=== PATIENT | male | born 1985 | race Caucasian/White ===

== ENCOUNTER 2017-07-28 18:59 | Emergency (ER) | payer OTHER ==
[2017-07-28 19:02] VITALS: BP 130/84; PULSE 86; RESP 16; TEMP 97.8; O2SAT 97
[2017-07-28] MEDS ORDERED: ADDE20XR PO (19:19)
--- NOTE | 2017-07-28 19:39 | RADRPT ---
EXAM DATE/TIME: 07/28/2017 19:24 [place] COMPARISON: No previous studies available for comparison. INDICATIONS : Left ankle pain. Patient [place] a [place]. MEDICAL HISTORY : Prior fracture. SURGICAL HISTORY : None. ENCOUNTER: Initial ACUITY: 2 weeks PAIN SCORE: 10/10 LOCATION: Left ankle. FINDINGS: Three view exam was performed of the left ankle. The bony structures are in normal alignment. No ev idence of fracture, dislocation, or soft tissue swelling. The ankle mortise is intact. No radiopaqu e foreign bodies are seen. Bony mineralization is normal. CONCLUSION: 1. No acute findings. Puneet Tobias MD on July 28, 2017 at 19:36 Board Certified Radiologist. This report was verified electronically.
--- NOTE | 2017-07-28 19:41 | PD ---
HPI Chief Complaint: Musculoskeletal Complaint Time Seen by Provider: 19:17 Travel History International Travel<30 days: No Contact w/Intl Traveler<30days: No Traveled to known affect area: No History of Present Illness HPI 31-year-old male presents emergency department complaining of left ankle pain. He states that he fell roller skating about a week and a half or so ago, but then injured it again today. Is been using a cane because of pain with weightbearing. Pains mostly in the lateral side of the ankle, worse with weightbearing, ongoing for the past week or so. History Past Medical History Medical History: Denies Significant Hx Tetanus Vaccination: < 5 Years Influenza Vaccination: Yes Past Surgical History Surgical History: No Previous Surgery Social History Alcohol Use: No Tobacco Use: Yes (cigar once in awhile) Allergies-Medications (Allergen,Severity, Reaction): Coded Allergies: No Known Allergies (Verified , 07/28/17) Reported Meds & Prescriptions Reported Meds & Active Scripts Active Reported Adderall Xr 24 HR (Amphetamine/Dextroamphetamine) 20 Mg Cap 20 Mg PO DAILY Once daily in the morning. Review of Systems Except as stated in HPI: all other systems reviewed are Neg Physical Exam Narrative GENERAL: Well-appearing 31-year-old man, no acute distress. SKIN: Warm and dry. CARDIOVASCULAR: Warm and well perfused. RESPIRATORY: Normal rate and effort. MUSCULOSKELETAL: Focus examination the left lower extremity reveals pain just inferior to the lateral malleolus. There is no pain on the dorsum of the foot. There is no pain to palpation of the medial lateral malleoli. There is no pain with calf squeeze or compression of the tibia and fibula proximally. Full range of motion. There is no ankle instability appreciable on my exam. NEUROLOGICAL: Awake and alert. No gross deficits. Data Data Last Documented VS Vital Signs Date Time Temp Pulse Resp B/P (MAP) Pulse Ox O2 Delivery O2 Flow Rate FiO2 07/28/17 19:19 20 07/28/17 19:02 97.8 86 130/84 (99) 97 Room Air Orders Orders Ankle, Complete ([id number]) (07/28/17 ) Splint Or Brace Apply/Monitor (07/28/17 19:36) MDM Medical Decision Making Medical Screen Exam Complete: Yes Emergency Medical Condition: Yes Interpretation(s) My review of left ankle x-ray: Negative. Differential Diagnosis Ankle injury, strain, fracture, other Narrative Course Medical decision making 31-year-old male with ankle injury times about a week and a half. Looks well. My review of the x-rays negative. Recommend splint, weightbearing as tolerated , proprioception exercises as discussed. Diagnosis Primary Impression: Left ankle sprain Additional Instructions: Wear splint as needed for comfort. Weight-bear as tolerated. The range of motion exercises as discussed. Follow-up with your primary doctor for not completely well in one to 2 weeks. Med/Other Pt SpecificInfo: No Change to Meds Disposition: 01 DISCHARGE HOME Condition: Stable Kp Gutierrez MD Jul 28, 2017 19:41
== END 2017-07-28 20:07 | disposition home or self-care (01) ==
LOC: NEPD 18:59
DX: S93.402A Sprain of unspecified ligament of left ankle, initial encounter (principal); Z72.0 Tobacco use; W18.39XA Other fall on same level, initial encounter; Y93.51 Activity, roller skating (inline) and skateboarding
CPT/HCPCS: 73610; 99283; E0113; L1906

== ENCOUNTER 2017-11-14 12:38 | Emergency (ER) | payer OTHER ==
[~2017-11-14] VITALS: Ht 172.7 cm; Wt 76.0 kg
[~2017-11-14 12:38] MED LIST: ADDE20XR PO
[2017-11-14 12:48] VITALS: BP 148/104; PULSE 122; RESP 16; TEMP 98.2; O2SAT 98
[2017-11-14] MEDS ORDERED: ZOLO25TA PO (12:52)
--- NOTE | 2017-11-14 13:42 | PD ---
HPI Chief Complaint: Psychiatric Symptoms Time Seen by Provider: 12:50 Travel History International Travel<30 days: No Contact w/Intl Traveler<30days: No Traveled to known affect area: No History of Present Illness HPI The patient is a 31-year-old male who presents to the emergency department for psychiatric evaluation. The patient was evaluated by his therapist earlier today and placed under a Avalos act for major depressive disorder, PTSD, and ADHD. 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 The patient is a who is extremely depressed and had a panic attack yesterday. The patient does state he has daily thoughts of suicide but does not currently have a plan. He does state he rabies sleep cut his right wrist while he was intoxicated and an attempt at suicide. He denies any history of overdose. He smokes marijuana occasionally, has been off of his Klonopin, Adderall, and Zoloft for several weeks. Symptoms are moderate. There are no current alleviating factors. The patient denies any physical complaints. PFSH Past Medical History ADHD: Yes Asthma: No Depression: Yes Cancer: No Cardiovascular Problems: No Diabetes: No Diminished Hearing: No Neurologic: Yes (tbi) Psychiatric: Yes (ptsd) Immunizations Current: Yes Seizures: No Thyroid Disease: No Ulcer: No Past Surgical History Surgical History: No Previous Surgery Other Surgery: No Social History Alcohol Use: No Tobacco Use: No (former) Substance Use: Yes Allergies-Medications (Allergen,Severity, Reaction): Coded Allergies: No Known Allergies (Verified , 07/28/17) Reported Meds & Prescriptions Reported Meds & Active Scripts Active Reported Zoloft (Sertraline HCl) 25 Mg Tab 25 Mg PO DAILY Adderall Xr 24 HR (Amphetamine/Dextroamphetamine) 20 Mg Cap 20 Mg PO DAILY Once daily in the morning. Review of Systems Except as stated in HPI: all other systems reviewed are Neg General / Constitutional: No: Fever Cardiovascular: No: Chest Pain or Discomfort Respiratory: No: Shortness of Breath Gastrointestinal: No: Nausea, Vomiting, Abdominal Pain Neurologic: No: Headache Psychiatric: Positive: Anxiety, Depression, Suicidal Ideations, No: Homicidal Ideation Physical Exam Narrative GENERAL: Awake, alert, pleasant 31-year-old male who appears his stated age and is in no acute respiratory distress. SKIN: Focused skin assessment warm/dry. Tattoos noted. Old scar of the volar aspect of the right wrist noted. HEAD: Atraumatic. Normocephalic. EYES: Pupils equal and round. No scleral icterus. No injection or drainage. ENT: No nasal bleeding or discharge. Mucous membranes pink and moist. NECK: Trachea midline. No JVD. CARDIOVASCULAR: Regular rate and rhythm. No murmur appreciated. RESPIRATORY: No accessory muscle use. Clear to auscultation. Breath sounds equal bilaterally. GASTROINTESTINAL: Abdomen soft, non-tender, nondistended. No rebound tenderness. MUSCULOSKELETAL: No obvious deformities. No clubbing. No cyanosis. No edema. NEUROLOGICAL: Awake and alert. No obvious cranial nerve deficits. Motor grossly within normal limits. Normal speech. Nonfocal. Oriented 4. Follows commands without difficulty. PSYCHIATRIC: Appropriate mood and affect; insight and judgment normal. Data Data Last Documented VS Vital Signs Date Time Temp Pulse Resp B/P (MAP) Pulse Ox O2 Delivery O2 Flow Rate FiO2 11/14/17 12:48 98.2 122 16 148/104 (119) 98 Orders Orders Complete Blood Count With Diff (11/14/17 13:36) Comprehensive Metabolic Panel (11/14/17 13:36) Thyroid Stimulating Hormone (11/14/17 13:36) Psych Screen (11/14/17 13:36) Drug Screen, Random Urine (11/14/17 13:36) Alcohol (Ethanol) (11/14/17 13:36) Labs Laboratory Tests Test 11/14/17 13:46 White Blood Count 9.6 TH/MM3 Red Blood Count 5.64 MIL/MM3 Hemoglobin 17.5 GM/DL Hematocrit 49.4 % Mean Corpuscular Volume 87.7 FL Mean Corpuscular Hemoglobin 31.0 PG Mean Corpuscular Hemoglobin Concent 35.3 % Red Cell Distribution Width 13.3 % Platelet Count 349 TH/MM3 Mean Platelet Volume 8.1 FL Neutrophils (%) (Auto) 73.4 % Lymphocytes (%) (Auto) 18.1 % Monocytes (%) (Auto) 6.7 % Eosinophils (%) (Auto) 1.4 % Basophils (%) (Auto) 0.4 % Neutrophils # (Auto) 7.1 TH/MM3 Lymphocytes # (Auto) 1.7 TH/MM3 Monocytes # (Auto) 0.6 TH/MM3 Eosinophils # (Auto) 0.1 TH/MM3 Basophils # (Auto) 0.0 TH/MM3 CBC Comment DIFF FINAL Differential Comment Blood Urea Nitrogen 16 MG/DL Creatinine 1.12 MG/DL Random Glucose 92 MG/DL Total Protein 9.2 GM/DL Albumin 5.2 GM/DL Calcium Level 10.0 MG/DL Alkaline Phosphatase 74 U/L Aspartate Amino Transf (AST/SGOT) 15 U/L Alanine Aminotransferase (ALT/SGPT) 44 U/L Total Bilirubin 0.9 MG/DL Sodium Level 138 MEQ/L Potassium Level 4.1 MEQ/L Chloride Level 103 MEQ/L Carbon Dioxide Level 28.2 MEQ/L Anion Gap 7 MEQ/L Estimat Glomerular Filtration Rate 77 ML/MIN Thyroid Stimulating Hormone 3rd Gen 1.710 uIU/ML Urine Opiates Screen NEG Urine Barbiturates Screen NEG Urine Amphetamines Screen NEG Urine Benzodiazepines Screen NEG Urine Cocaine Screen NEG Urine Cannabinoids Screen POS Ethyl Alcohol Level LESS THAN 3 MG/DL MDM Medical Decision Making Medical Screen Exam Complete: Yes Emergency Medical Condition: Yes Medical Record Reviewed: Yes Interpretation(s) Laboratory Tests Test 11/14/17 13:46 White Blood Count 9.6 TH/MM3 Red Blood Count 5.64 MIL/MM3 Hemoglobin 17.5 GM/DL Hematocrit 49.4 % Mean Corpuscular Volume 87.7 FL Mean Corpuscular Hemoglobin 31.0 PG Mean Corpuscular Hemoglobin Concent 35.3 % Red Cell Distribution Width 13.3 % Platelet Count 349 TH/MM3 Mean Platelet Volume 8.1 FL Neutrophils (%) (Auto) 73.4 % Lymphocytes (%) (Auto) 18.1 % Monocytes (%) (Auto) 6.7 % Eosinophils (%) (Auto) 1.4 % Basophils (%) (Auto) 0.4 % Neutrophils # (Auto) 7.1 TH/MM3 Lymphocytes # (Auto) 1.7 TH/MM3 Monocytes # (Auto) 0.6 TH/MM3 Eosinophils # (Auto) 0.1 TH/MM3 Basophils # (Auto) 0.0 TH/MM3 CBC Comment DIFF FINAL Differential Comment Blood Urea Nitrogen 16 MG/DL Creatinine 1.12 MG/DL Random Glucose 92 MG/DL Total Protein 9.2 GM/DL Albumin 5.2 GM/DL Calcium Level 10.0 MG/DL Alkaline Phosphatase 74 U/L Aspartate Amino Transf (AST/SGOT) 15 U/L Alanine Aminotransferase (ALT/SGPT) 44 U/L Total Bilirubin 0.9 MG/DL Sodium Level 138 MEQ/L Potassium Level 4.1 MEQ/L Chloride Level 103 MEQ/L Carbon Dioxide Level 28.2 MEQ/L Anion Gap 7 MEQ/L Estimat Glomerular Filtration Rate 77 ML/MIN Thyroid Stimulating Hormone 3rd Gen 1.710 uIU/ML Urine Opiates Screen NEG Urine Barbiturates Screen NEG Urine Amphetamines Screen NEG Urine Benzodiazepines Screen NEG Urine Cocaine Screen NEG Urine Cannabinoids Screen POS Ethyl Alcohol Level LESS THAN 3 MG/DL Differential Diagnosis Differential diagnosis includes bipolar affective disorder, schizoaffective disorder, major depressive disorder, PTSD, ADHD, suicidal ideation. Narrative Course Labs are drawn and sent. Psychiatric evaluation was ordered. Labs are noted. Tox screen positive for cannabinoids. Patient is medically cleared to be evaluated by psychiatry. Disposition as per psych. Diagnosis Primary Impression: Major depressive disorder, recurrent episode, unspecified Condition: Stable Manjinder Delcid MD Nov 14, 2017 13:42
[2017-11-14 14:08] LABS: AUTOMATED NEUTROPHIL # 7.1 TH/MM3 (1.8-7.7); BASOPHIL % 0.4 % (0.0-2.0); EOSINOPHIL # 0.1 TH/MM3 (0-0.4); EOSINOPHIL % 1.4 % (0.0-4.0); HEMATOCRIT 49.4 % (39.0-51.0); HEMOGLOBIN 17.5 GM/DL (13.0-17.0); LYMPH % 18.1 % (9.0-44.0); LYMPHOCYTE # 1.7 TH/MM3 (1.0-4.8); MEAN CELL VOLUME 87.7 FL (80.0-100.0); MEAN CORPUSCULAR HGB CONC 35.3 % (32.0-36.0); MEAN PLATELET VOLUME 8.1 FL (7.0-11.0); MONO % 6.7 % (0.0-8.0); MONOCYTE # 0.6 TH/MM3 (0-0.9); NEUT % 73.4 % (16.0-70.0); PLATELET COUNT 349 TH/MM3 (150-450); RED BLOOD COUNT 5.64 MIL/MM3 (4.50-5.90); RED CELL DISTRIBUTION WIDTH 13.3 % (11.6-17.2); WHITE BLOOD COUNT 9.6 TH/MM3 (4.0-11.0)
[2017-11-14 14:35] LABS: ALBUMIN 5.2 GM/DL (3.4-5.0); ALT (GPT) 44 U/L (12-78); AST (GOT) 15 U/L (15-37); BICARBONATE 28.2 MEQ/L (21.0-32.0); BLOOD UREA NITROGEN 16 MG/DL (7-18); CHLORIDE 103 MEQ/L (98-107); CREATININE 1.12 MG/DL (0.60-1.30); GLOMERULAR FILTRATION RATE 77 ML/MIN (>89); GLUCOSE,RANDOM 92 MG/DL (74-106); SODIUM (NA) 138 MEQ/L (136-145)
[2017-11-14 14:44] LABS: ALKALINE PHOSPHATASE 74 U/L (45-117); TOTAL BILIRUBIN ADULT 0.9 MG/DL (0.2-1.0); TOTAL PROTEIN 9.2 GM/DL (6.4-8.2)
[2017-11-14 16:30] VITALS: BP 130/100; PULSE 63; RESP 20; TEMP 99; O2SAT 99
[2017-11-14] MEDS ORDERED: ADDE10 PO (20:05)
[2017-11-14] MEDS ORDERED: KLON2TAB PO (20:25)
[2017-11-14] MEDS ORDERED: diphenhydrAMINE HCL 50 MG CAP PO ONE (20:30)
[2017-11-15 06:50] VITALS: BP 128/67; PULSE 78; RESP 18; TEMP 98.2; O2SAT 96
--- NOTE | 2017-11-15 12:13 | PD ---
History of Present Illness Chief Complaint: Psychiatric Symptoms Time Seen by Provider: 11:45 Travel History International Travel<30 Days: No Contact w/Intl Traveler<30days: No Known affected area: No Legal Status Legal Status: Avalos Act Avalos Act Signed By: BONG KUMAR [place] DUNCAN History of Present Illness: History of Present Illness HPI The patient is a 31-year-old male with history of PTSD, ADHD, depression who presents to the emergency department under a Avalos act initiated by social security benefits interviewer at the [facility]. 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 He stated " I know to make explosives". [place] is extremely depressed. Refused to go see a psychiatrist." The patient provides the following explanation to the events leading up to the Avalos act. He admits that he had gone to the [place] emergency department yesterday with atypical chest pain determined to be an anxiety attack and was released. He made an appointment to see his therapist at the [facility] the following day which was today. He states that when he got there she asked him if he ever thought about suicide and he states he reported that he has daily thoughts of suicide but that isn't happening for a long time. He also states she asked him if he ever thought of how he would do it and he stated that he would make it seem like an accident. He also shared with her that he had had a dream about Ayan Alberts. He goes on to report that he feels that the questions were misleading and that he did not refuse to see a psychiatrist and that he in fact has an appointment set up for next week. The patient was monitored in secure environment and he presented no behavioral concerns, no agitation and no suicidality. Current toxicology is positive for cannabinoids which she states he has medical marijuana prescription card. He is seen. Electronic medical record is reviewed. He is alert, oriented, calm and cooperative. His speech is clear, logical, goal-directed. There is no brittny or no hypomania. No evidence of any hallucinations, delusions or paranoia. He denies suicidal or homicidal ideation, intent or plan. He admits to chronic suicidal thoughts with no specific plan. Patient does admit that he has been off his medications for about 3 weeks which probably causes increase in anxiety. He has spoken with his cousin who is his mergers and acquisitions banker this morning and he does have the medication at the [facility]. The patient furthermore is very concerned with a court hearing that was scheduled for today involving custody of his 5-month-old daughter. He is working on getting custody of this child. He also has a 5-year-old daughter that he is very much involved in her life. Remainder of psychiatric review of systems is negative. In terms of the Ayan Alberts allegation he continues to assert that it was only a dream and that he told the [facility] social [facility] benefits interviewer that it was just that a dream. Telephone to aunaudrey Dhillon at [phone]. She has no concerns for his safety or the safety of anyone else at this time, that he is very invested in his daughters and on the current custody case. PFSH Past Medical History ADHD: Yes Asthma: No Depression: Yes Cancer: No Cardiovascular Problems: No Diabetes: No Diminished Hearing: No Neurologic: Yes (tbi) Psychiatric: Yes (ptsd) Immunizations Current: Yes Seizures: No Thyroid Disease: No Ulcer: No Past Surgical History Surgical History: No Previous Surgery Other Surgery: No Psychiatric History Psychiatric History Hx Psychiatric Treatment: HX OF PTSD, DEPRESSION, ANXIETY. HAS BEEN HOSPITALIZED 3 TIMES IN THE SYSTEM. No previous history of suicide attempts. Does report he attempted to cut himself while under the influence of alcohol. History of Inpatient Treatment: Yes Guns or firearms in home: No Social History male. Has completed high school. Is a of the [employer]. Currently on disability. Lives by himself and has a girlfriend. Has a 5 -year-old daughter and a 5-month-old daughter. Hx Alcohol Use: No Hx Tobacco Use: No (former) Hx Substance Use: Yes Substance Use Type: Alcohol, Marijuana Other Substances Used: REPORTS THAT HE QUIT DRINKING AFTER HE ATTEMPTED TO CUT HIMSELF WHILE DRUNK Hx of Substance Use Treatment: No Family Psychiatric History Negative Allergies-Medications (Allergen,Severity, Reaction): Coded Allergies: No Known Allergies (Verified , 07/28/17) Reported Meds & Prescriptions Reported Meds & Active Scripts Active Reported Klonopin (Clonazepam) 2 Mg Tab 2 Mg PO BID Adderall (Amphetamine-Dextroamphetamine) 10 Mg Tab 10 Mg PO BID Avoid late evening doses. Space doses at least 4 to 6 hours if more than once/day dosing. Zoloft (Sertraline HCl) 25 Mg Tab 25 Mg PO DAILY Review of Systems Except as stated in HPI: all other systems reviewed are Neg Mental Status Examination Appearance: Appropriate Consciousness: Alert Orientation: x4 Motor Activity: Normal gait Speech: Unremarkable Language: Adequate Fund of Knowledge: Adequate Attention and Concentration: Adequate Memory: Unremarkable Mood: Appropriate Affect: Appropriate Thought Process & Associations: Intact, Logical, Goal directed Thought Content: Appropriate Hallucination Type: None Delusion Type: None Suicidal Ideation: No Suicidal Plan: No Homicidal Ideation: No Homicidal Plan: No Insight: Adequate Judgment: Adequate MDM Medical Decision Making Medical Record Reviewed: Yes Assessment/Plan History of Present Illness 31-year-old single male with history of PTSD, ADHD, depression who presents under a Avalos act initiated by social security benefits interviewer at the [facility]. 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 The patient denies any attempt at harming himself. He presented voluntarily to the [facility] for help. He states that the suicidal thoughts are chronic in nature and that he meets on a regular basis with his psychologist at the [facility]. He denies that he has any intention of harming himself or anyone else. He is future oriented and is very concerned about his 5-month- old daughter which she is trying to get custody of. He has adequate protective factors in place including supportive family members. Collateral information was obtained and family member has no concerns for the patient's or anybody else 's safety and advocates for his release from the hospital. [place] all available clinical information and information obtained from collateral sources I find that the patient is not at imminent risk of harm to self or others. He is provided psychoeducation. He has plans on going to the [facility] later today to get his medication and has follow-up appointment with his psychiatrist at the [facility] as well as with his psychologist. He agrees to return to the emergency room if there are any changes and this is part of a general safety plan Lift BA. Follow up with [facility]. Orders Orders Complete Blood Count With Diff (11/14/17 13:36) Comprehensive Metabolic Panel (11/14/17 13:36) Thyroid Stimulating Hormone (11/14/17 13:36) Psych Screen (11/14/17 13:36) Drug Screen, Random Urine (11/14/17 13:36) Alcohol (Ethanol) (11/14/17 13:36) Diphenhydramine (Benadryl) (11/14/17 20:30) Diet Regular Basic (11/15/17 Breakfast) Diet Regular Basic (11/15/17 Lunch) Results Vital Signs Date Time Temp Pulse Resp B/P (MAP) Pulse Ox O2 Delivery O2 Flow Rate FiO2 11/15/17 06:50 98.2 78 18 128/67 (87) 96 Room Air 11/14/17 16:30 99.0 63 20 130/100 (110) 99 Room Air 11/14/17 12:48 98.2 122 16 148/104 (119) 98 Laboratory Tests Test 11/14/17 13:46 White Blood Count 9.6 Red Blood Count 5.64 Hemoglobin 17.5 Hematocrit 49.4 Mean Corpuscular Volume 87.7 Mean Corpuscular Hemoglobin 31.0 Mean Corpuscular Hemoglobin Concent 35.3 Red Cell Distribution Width 13.3 Platelet Count 349 Mean Platelet Volume 8.1 Neutrophils (%) (Auto) 73.4 Lymphocytes (%) (Auto) 18.1 Monocytes (%) (Auto) 6.7 Eosinophils (%) (Auto) 1.4 Basophils (%) (Auto) 0.4 Neutrophils # (Auto) 7.1 Lymphocytes # (Auto) 1.7 Monocytes # (Auto) 0.6 Eosinophils # (Auto) 0.1 Basophils # (Auto) 0.0 CBC Comment DIFF FINAL Differential Comment Blood Urea Nitrogen 16 Creatinine 1.12 Random Glucose 92 Total Protein 9.2 Albumin 5.2 Calcium Level 10.0 Alkaline Phosphatase 74 Aspartate Amino Transf (AST/SGOT) 15 Alanine Aminotransferase (ALT/SGPT) 44 Total Bilirubin 0.9 Sodium Level 138 Potassium Level 4.1 Chloride Level 103 Carbon Dioxide Level 28.2 Anion Gap 7 Estimat Glomerular Filtration Rate 77 Thyroid Stimulating Hormone 3rd Gen 1.710 Urine Opiates Screen NEG Urine Barbiturates Screen NEG Urine Amphetamines Screen NEG Urine Benzodiazepines Screen NEG Urine Cocaine Screen NEG Urine Cannabinoids Screen POS Ethyl Alcohol Level LESS THAN 3 Diagnosis Primary Impression: PTSD (post-traumatic stress disorder) Additional Impression: Depression Psychiatrically Cleared: Yes Med/ Other Pt Specific Info: No Change to Meds Disposition: 01 DISCHARGE HOME Condition: Stable Problem Qualifiers Additional Impression: Depression Qualified Codes: F33.0 - Major depressive disorder, recurrent, mild Wendi Ribeiro Nov 15, 2017 12:13
--- NOTE | 2017-11-15 12:30 | PD ---
Physical Exam Time Seen by Provider: 12:29 Narrative Please refer to previous providers documentation for details surrounding the patient's current visit. Data Data Last Documented VS Vital Signs Date Time Temp Pulse Resp B/P (MAP) Pulse Ox O2 Delivery O2 Flow Rate FiO2 11/15/17 06:50 98.2 78 18 128/67 (87) 96 Room Air Orders Orders Complete Blood Count With Diff (11/14/17 13:36) Comprehensive Metabolic Panel (11/14/17 13:36) Thyroid Stimulating Hormone (11/14/17 13:36) Psych Screen (11/14/17 13:36) Drug Screen, Random Urine (11/14/17 13:36) Alcohol (Ethanol) (11/14/17 13:36) Diphenhydramine (Benadryl) (11/14/17 20:30) Diet Regular Basic (11/15/17 Breakfast) Diet Regular Basic (11/15/17 Lunch) Ed Discharge Order (11/15/17 12:29) Labs Laboratory Tests Test 11/14/17 13:46 White Blood Count 9.6 TH/MM3 Red Blood Count 5.64 MIL/MM3 Hemoglobin 17.5 GM/DL Hematocrit 49.4 % Mean Corpuscular Volume 87.7 FL Mean Corpuscular Hemoglobin 31.0 PG Mean Corpuscular Hemoglobin Concent 35.3 % Red Cell Distribution Width 13.3 % Platelet Count 349 TH/MM3 Mean Platelet Volume 8.1 FL Neutrophils (%) (Auto) 73.4 % Lymphocytes (%) (Auto) 18.1 % Monocytes (%) (Auto) 6.7 % Eosinophils (%) (Auto) 1.4 % Basophils (%) (Auto) 0.4 % Neutrophils # (Auto) 7.1 TH/MM3 Lymphocytes # (Auto) 1.7 TH/MM3 Monocytes # (Auto) 0.6 TH/MM3 Eosinophils # (Auto) 0.1 TH/MM3 Basophils # (Auto) 0.0 TH/MM3 CBC Comment DIFF FINAL Differential Comment Blood Urea Nitrogen 16 MG/DL Creatinine 1.12 MG/DL Random Glucose 92 MG/DL Total Protein 9.2 GM/DL Albumin 5.2 GM/DL Calcium Level 10.0 MG/DL Alkaline Phosphatase 74 U/L Aspartate Amino Transf (AST/SGOT) 15 U/L Alanine Aminotransferase (ALT/SGPT) 44 U/L Total Bilirubin 0.9 MG/DL Sodium Level 138 MEQ/L Potassium Level 4.1 MEQ/L Chloride Level 103 MEQ/L Carbon Dioxide Level 28.2 MEQ/L Anion Gap 7 MEQ/L Estimat Glomerular Filtration Rate 77 ML/MIN Thyroid Stimulating Hormone 3rd Gen 1.710 uIU/ML Urine Opiates Screen NEG Urine Barbiturates Screen NEG Urine Amphetamines Screen NEG Urine Benzodiazepines Screen NEG Urine Cocaine Screen NEG Urine Cannabinoids Screen POS Ethyl Alcohol Level LESS THAN 3 MG/DL MDM Medical Record Reviewed: Yes Supervised Visit with LEILA: No Narrative Course Patient has been medically cleared yesterday. Seen and evaluated by psychiatry day. Avalos act has been lifted. No further medical needs, patient will be discharged home at this time. Diagnosis Primary Impression: Major depressive disorder, recurrent episode, unspecified Disposition: DISCHARGE HOME Condition: Stable Korin Astudillo Nov 15, 2017 12:30
== END 2017-11-15 12:59 | disposition home or self-care (01) ==
LOC: NEPD 12:38 → NEPJ 11-15 12:59
DX: F33.0 Major depressive disorder, recurrent, mild (principal); F43.10 Post-traumatic stress disorder, unspecified; F90.9 Attention-deficit hyperactivity disorder, unspecified type; F12.90 Cannabis use, unspecified, uncomplicated; F41.0 Panic disorder [episodic paroxysmal anxiety]; Z79.899 Other long term (current) drug therapy
CPT/HCPCS: 80053; 80307; 84443; 85025; 99283; Q0163

== ENCOUNTER 2017-12-16 06:27 | Emergency (ER) | payer OTHER ==
[~2017-12-16] VITALS: Ht 152.4 cm; Wt 75.0 kg
[~2017-12-16 06:27] MED LIST changes: +ADDE10 PO; -ADDE20XR PO; +KLON2TAB PO; +ZOLO25TA PO
[2017-12-16 06:29] VITALS: BP 129/79; PULSE 76; RESP 16; TEMP 98.7; O2SAT 96
[2017-12-16] MEDS ORDERED: PIPERACIL-TAZO 3.375 GM PREMIX 50 ML IV ONE (06:45)
[2017-12-16] MEDS ORDERED: DEXAMETHASONE SOD PHOS 4 MG/ML VIAL IV PUSH ONE (06:45)
--- NOTE | 2017-12-16 06:51 | PD ---
HPI Chief Complaint: ENT Complaint Time Seen by Provider: 06:44 Travel History International Travel<30 days: No Contact w/Intl Traveler<30days: No Traveled to known affect area: No History of Present Illness HPI 32-year-old male patient with presents to the ER today with 5 days history of sore throat, pain with swallowing, chills, and feels like it is getting worse. He denies any chest pains, vomiting, abdominal pains, or other issues. He does not know of any sick contacts. Modifying Factors: None Associated Signs & Symptoms: Sore throat, difficulty swallowing, chills Risk Factors: None PFSH Past Medical History Medical History: Denies Significant Hx ADHD: Yes Asthma: No Depression: Yes Cancer: No Cardiovascular Problems: No Diabetes: No Diminished Hearing: No Neurologic: Yes (tbi) Psychiatric: Yes (ptsd) Immunizations Current: Yes Seizures: No Thyroid Disease: No Ulcer: No Past Surgical History Surgical History: No Previous Surgery Other Surgery: No Social History Alcohol Use: No Tobacco Use: No (former) Substance Use: Yes (MARIJUANA ) Allergies-Medications (Allergen,Severity, Reaction): Coded Allergies: No Known Allergies (Verified Adverse Reaction, Unknown, 12/16/17) Reported Meds & Prescriptions Reported Meds & Active Scripts Active Reported Klonopin (Clonazepam) 2 Mg Tab 2 Mg PO BID Adderall (Amphetamine-Dextroamphetamine) 10 Mg Tab 10 Mg PO BID Avoid late evening doses. Space doses at least 4 to 6 hours if more than once/day dosing. Zoloft (Sertraline HCl) 25 Mg Tab 25 Mg PO DAILY Review of Systems Except as stated in HPI: all other systems reviewed are Neg Physical Exam Narrative GENERAL: Well-developed young male patient currently in mild distress. Awake and oriented 3. SKIN: Focused skin assessment warm/dry. HEAD: Atraumatic. Normocephalic. EYES: Pupils equal and round. No scleral icterus. No injection or drainage. ENT: Mucosa pink and moist. Significant pharyngeal no erythema with no exudates. Mild uvular edema. An notable deviation of the uvula away from the right, and fullness of the right peritonsillar area. Airway patent. Nasal turbinates appear normal without nasal blood, purulent drainage or septal hematoma. NECK: Trachea midline. No JVD. Supple. No palpable masses. CARDIOVASCULAR: Regular rate and rhythm. No murmur appreciated. RESPIRATORY: No accessory muscle use. Clear to auscultation. Breath sounds equal bilaterally. GASTROINTESTINAL: Abdomen soft, non-tender, nondistended. Hepatic and splenic margins not palpable. MUSCULOSKELETAL: No obvious deformities. No clubbing. No cyanosis. No edema. NEUROLOGICAL: Awake and alert. No obvious cranial nerve deficits. Motor grossly within normal limits. Normal speech. PSYCHIATRIC: Appropriate mood and affect; insight and judgment normal. Data Data Last Documented VS Vital Signs Date Time Temp Pulse Resp B/P (MAP) Pulse Ox O2 Delivery O2 Flow Rate FiO2 12/16/17 06:29 98.7 76 16 129/79 (96) 96 Orders Orders Group A Rapid Strep Screen (12/16/17 06:41) Influenzae A/B Antigen (12/16/17 06:41) Complete Blood Count With Diff (12/16/17 06:45) Basic Metabolic Panel (Bmp) (12/16/17 06:45) Ct Soft Tiss Neck W Iv Cont (12/16/17 06:45) Dexamethasone Inj (Decadron Inj) (12/16/17 06:45) Piperacil-Tazo 3.375 Gm Premix (Zosyn 3. (12/16/17 06:45) MDM Medical Decision Making Medical Screen Exam Complete: Yes Emergency Medical Condition: Yes Medical Record Reviewed: Yes Differential Diagnosis Strep pharyngitis versus peritonsillar abscess versus viral pharyngitis versus viral syndrome Narrative Course Considering the exam, there is concern for peritonsillar abscess. Lab work was done and CAT scan was ordered for further evaluation of this area. Decadron was given IV antibiotics were given as well. Physician Communication Physician Communication Case is signed out at 7 AM to oncoming physician awaiting lab work and CAT scan. Disposition based on scanning. Condition: Stable Thomas Prince MD Dec 16, 2017 06:51
--- NOTE | 2017-12-16 07:15 | PD ---
Physical Exam Date Seen by Provider: Dec 16, 2017 Time Seen by Provider: 07:14 Narrative The patient is a 32-year-old male was initiated by the previous physician. Please refer to the initial history, physical, diagnostic evaluation, treatment modality plan. The patient was signed out at 7 AM with laboratory evaluation and CT pending. Data Data Last Documented VS Vital Signs Date Time Temp Pulse Resp B/P (MAP) Pulse Ox O2 Delivery O2 Flow Rate FiO2 12/16/17 07:22 93 18 133/81 (98) 98 Room Air 12/16/17 06:29 98.7 Orders Orders Group A Rapid Strep Screen (12/16/17 06:41) Influenzae A/B Antigen (12/16/17 06:41) Complete Blood Count With Diff (12/16/17 06:45) Basic Metabolic Panel (Bmp) (12/16/17 06:45) Ct Soft Tiss Neck W Iv Cont (12/16/17 06:45) Dexamethasone Inj (Decadron Inj) (12/16/17 06:45) Piperacil-Tazo 3.375 Gm Premix (Zosyn 3. (12/16/17 06:45) Strep Culture (Group A) (12/16/17 07:10) Sodium Chlor 0.9% 1000 Ml Inj (Ns 1000 M (12/16/17 08:00) Iohexol 350 Inj (Omnipaque 350 Inj) (12/16/17 08:20) Labs Laboratory Tests Test 12/16/17 07:10 White Blood Count 12.4 TH/MM3 Red Blood Count 4.61 MIL/MM3 Hemoglobin 14.0 GM/DL Hematocrit 40.4 % Mean Corpuscular Volume 87.5 FL Mean Corpuscular Hemoglobin 30.3 PG Mean Corpuscular Hemoglobin Concent 34.6 % Red Cell Distribution Width 13.2 % Platelet Count 304 TH/MM3 Mean Platelet Volume 8.0 FL Neutrophils (%) (Auto) 76.6 % Lymphocytes (%) (Auto) 12.6 % Monocytes (%) (Auto) 9.4 % Eosinophils (%) (Auto) 1.0 % Basophils (%) (Auto) 0.4 % Neutrophils # (Auto) 9.5 TH/MM3 Lymphocytes # (Auto) 1.6 TH/MM3 Monocytes # (Auto) 1.2 TH/MM3 Eosinophils # (Auto) 0.1 TH/MM3 Basophils # (Auto) 0.0 TH/MM3 CBC Comment DIFF FINAL Differential Comment Blood Urea Nitrogen 10 MG/DL Creatinine 0.84 MG/DL Random Glucose 105 MG/DL Calcium Level 9.1 MG/DL Sodium Level 141 MEQ/L Potassium Level 4.4 MEQ/L Chloride Level 106 MEQ/L Carbon Dioxide Level 30.0 MEQ/L Anion Gap 5 MEQ/L Estimat Glomerular Filtration Rate 107 ML/MIN [facility] Medical Record Reviewed: Yes Supervised Visit with LEILA: No Interpretation(s) Laboratory Tests Test 12/16/17 07:10 White Blood Count 12.4 TH/MM3 Red Blood Count 4.61 MIL/MM3 Hemoglobin 14.0 GM/DL Hematocrit 40.4 % Mean Corpuscular Volume 87.5 FL Mean Corpuscular Hemoglobin 30.3 PG Mean Corpuscular Hemoglobin Concent 34.6 % Red Cell Distribution Width 13.2 % Platelet Count 304 TH/MM3 Mean Platelet Volume 8.0 FL Neutrophils (%) (Auto) 76.6 % Lymphocytes (%) (Auto) 12.6 % Monocytes (%) (Auto) 9.4 % Eosinophils (%) (Auto) 1.0 % Basophils (%) (Auto) 0.4 % Neutrophils # (Auto) 9.5 TH/MM3 Lymphocytes # (Auto) 1.6 TH/MM3 Monocytes # (Auto) 1.2 TH/MM3 Eosinophils # (Auto) 0.1 TH/MM3 Basophils # (Auto) 0.0 TH/MM3 CBC Comment DIFF FINAL Differential Comment Blood Urea Nitrogen 10 MG/DL Creatinine 0.84 MG/DL Random Glucose 105 MG/DL Calcium Level 9.1 MG/DL Sodium Level 141 MEQ/L Potassium Level 4.4 MEQ/L Chloride Level 106 MEQ/L Carbon Dioxide Level 30.0 MEQ/L Anion Gap 5 MEQ/L Estimat Glomerular Filtration Rate 107 ML/MIN CT soft tissue neck with contrast reveals bilateral tonsillar enlargement, right greater than left. No evidence of an immature abscess. Mild bilateral internal jugular lymph node prominence. Differential Diagnosis Differential diagnosis includes peritonsillar abscess, tonsillitis, pharyngitis , retropharyngeal abscess, squamous cell carcinoma, otitis media, sepsis. Narrative Course The patient's initial evaluated by the previous physician. Please refer to initial history, physical, diagnostic evaluation, treatment modality plan. The patient was signed out at [address] and laboratory evaluation pending. The patient did receive Zosyn and Decadron. Influenza screen was negative. White count is mildly elevated at 12.4. Strep screen is negative. CT reveals bilateral tonsillar enlargement, right greater than left, with mild bilateral internal jugular lymph node prominence, however, no evidence of an immature abscess. The patient was reevaluated, he thinks he will be able swallow pills, the patient will be placed on Medrol Dosepak and Augmentin. Tylenol and/or Motrin as needed for pain and fever. Plenty fluids to stay hydrated. Return if symptoms worsen or progress. He is advised to follow-up with a primary physician. Diagnosis Primary Impression: Tonsillitis Patient Instructions: General Instructions Additional Instruction: Medications as directed. Plenty fluids to stay hydrated. Tylenol and Motrin as needed for pain and fever. Follow-up with a primary physician. Please provide a patient a copy of his CT results and lab results at discharge. Med/Other Pt SpecificInfo: Prescription(s) given Scripts Methylprednisolone Dosepak (Medrol Dosepak) 4 Mg Dspk 4 MG PO DIRECTED, #1 DSPK 0 Refills Per Pharmacist direction Prov: Manjinder Delcid MD 12/16/17 Amoxicillin-Clavulanate (Augmentin) 875-125 Mg Tab 1 TAB PO BID for Infection for 10 Days, #20 TAB 0 Refills Prov: Manjinder Delcid MD 12/16/17 Disposition: DISCHARGE HOME Condition: Stable Manjinder Delcid MD Dec 16, 2017 07:15
[2017-12-16 07:22] VITALS: BP 133/81; PULSE 93; RESP 18; O2SAT 98
[2017-12-16 07:34] LABS: AUTOMATED NEUTROPHIL # 9.5 TH/MM3 (1.8-7.7); BASOPHIL % 0.4 % (0.0-2.0); EOSINOPHIL # 0.1 TH/MM3 (0-0.4); HEMATOCRIT 40.4 % (39.0-51.0); LYMPH % 12.6 % (9.0-44.0); LYMPHOCYTE # 1.6 TH/MM3 (1.0-4.8); MEAN CELL VOLUME 87.5 FL (80.0-100.0); MEAN CORPUSCULAR HEMOGLOBIN 30.3 PG (27.0-34.0); MEAN CORPUSCULAR HGB CONC 34.6 % (32.0-36.0); MONO % 9.4 % (0.0-8.0); MONOCYTE # 1.2 TH/MM3 (0-0.9); NEUT % 76.6 % (16.0-70.0); PLATELET COUNT 304 TH/MM3 (150-450); RED BLOOD COUNT 4.61 MIL/MM3 (4.50-5.90); RED CELL DISTRIBUTION WIDTH 13.2 % (11.6-17.2); WHITE BLOOD COUNT 12.4 TH/MM3 (4.0-11.0)
[2017-12-16 07:52] LABS: CALCIUM 9.1 MG/DL (8.5-10.1); CREATININE 0.84 MG/DL (0.60-1.30)
[2017-12-16] MEDS ORDERED: SODIUM CHLOR 0.9% 1000 ML INJ 1,000 ML IV ONE (08:00)
[2017-12-16] MEDS ORDERED: IOHEXOL 350 MG/ML 10 ML VIAL (for RAD DIAG) IVCONTRAST ONE (08:20)
--- NOTE | 2017-12-16 08:31 | RADRPT ---
EXAM DATE/TIME: 12/16/2017 08:09 [place] COMPARISON: No previous studies available for comparison. INDICATIONS : Throat pain for one week. IV CONTRAST: 72 cc Omnipaque 350 (iohexol) IV RADIATION DOSE: 15.49 CTDIvol (mGy) MEDICAL HISTORY : None SURGICAL HISTORY : None. ENCOUNTER: Initial ACUITY: 1 week PAIN SCALE: 6/10 LOCATION: Bilateral throat TECHNIQUE: Volumetric scanning of the neck was performed. Using automated exposure control and adjustment of th e mA and/or kV according to patient size, radiation dose was kept as low as reasonably achievable to obtain optimal diagnostic quality images. DICOM format image data is available electronically for r eview and comparison. FINDINGS: NASOPHARYNX: The nasopharyngeal airway has a normal configuration. No mucosal thickening or mass is seen. OROPHARYNX: The intrinsic muscles of the tongue are symmetric. Asymmetric enlargement of the tonsils were noted. The right tonsil is significantly larger. The right tonsil demonstrates heterogeneous density but no evidence of discrete or rupture fluid collection. The prevertebral soft tissues are not thickened. LARYNX: The supraglottic, glottic, and infraglottic structures are intact. PARAPHARYNGEAL: The parapharyngeal space is intact. SALIVARY GLANDS: The parotid and submandibular glands are intact. LYMPH NODES: Mildly prominent bilateral internal jugular lymph nodes are noted ranging in size up to 12 mm. There are no necrotic appearing lymph nodes. THYROID: Homogeneous enhancement without evidence of nodule. BONES: Unremarkable. CONCLUSION: 1. Bilateral tonsillar enlargement; right greater than left. 2. No evidence of mature abscess. 3. Mild bilateral internal jugular lymph node prominence. Luke Morris MD on December 16, 2017 at 8:26 Board Certified Radiologist. This report was verified electronically.
[2017-12-16] MEDS ORDERED: MEDR4PAK PO (08:41)
[2017-12-16] MEDS ORDERED: AUGM875T3 PO (08:41)
[2017-12-16] MEDS ORDERED: LACTCAP8 PO (08:53)
== END 2017-12-16 09:13 | disposition home or self-care (01) ==
LOC: NEPE 06:27
DX: J03.90 Acute tonsillitis, unspecified (principal); B95.0 Streptococcus, group A, as the cause of diseases classified elsewhere; F90.9 Attention-deficit hyperactivity disorder, unspecified type; F32.9 Major depressive disorder, single episode, unspecified; F43.10 Post-traumatic stress disorder, unspecified; Z79.899 Other long term (current) drug therapy
CPT/HCPCS: 70491; 80048; 85025; 87081; 87804; 87880; 96361; 96365; 96375; 99284; J1100; J2543; J7030; Q9967